=== PATIENT | female | born 1975 | race Caucasian/White ===

== ENCOUNTER 2022-04-02 15:51 | Emergency (ER) | payer MEDICAID, OTHER ==
[~2022-04-02] VITALS: Ht 165.1 cm; Wt 65.8 kg
[2022-04-02 17:00] VITALS: BP_SYST 152
--- NOTE | 2022-04-02 17:25 | NUR ---
Pt presents to the ER bib bls. Pt states homeless and refuses psychosocial rehabilitation counselor assistance. Pt c/o fever at 102.1 temp. Pt skin intact aaox3. bed down bedrails up.
--- NOTE | 2022-04-02 17:30 | NUR ---
Patient to ER bed 8 to gown for evaluation. Side rails up. Report given to Poonam ELIZABETH.
[2022-04-02] MEDS ORDERED: ACETAMINOPHEN 500 MG TABLET PO ONE ×2 (17:45)
[2022-04-02] MEDS ORDERED: NACL 0.9% 1,000 ML IV ONE (17:45)
--- NOTE | 2022-04-02 17:51 | NUR ---
ER at bedside examining patient.
--- NOTE | 2022-04-02 18:45 | NUR ---
Radiology with pt at bs.
[2022-04-02 19:00] LABS: BASOPHILS % (AUTO) 0.8 % (0.0-2.0); EOSINOPHILS % (AUTO) 0.8 % (0.0-4.0); HEMATOCRIT 34.4 % (36-48); HEMOGLOBIN 11.6 g/dL (12.0-16.0); LYMPHOCYTES # (AUTO) 1.2 K/uL (1.0-5.5); LYMPHOCYTES % (AUTO) 25.6 % (20.5-51.5); MEAN CORPUSCULAR HEMOGLOBIN 28 pg (27-31); MEAN CORPUSCULAR HGB CONC 34 % (32-36); MEAN CORPUSCULAR VOLUME 82 fL (79.0-98.0); MONOCYTES # (AUTO) 0.5 K/uL (0.0-1.0); MONOCYTES % (AUTO) 10.7 % (1.7-9.3); NEUTROPHILS # (AUTO) 2.9 K/uL (1.8-7.7); NEUTROPHILS % (AUTO) 62.1 % (40.0-70.0); PLATELET COUNT (AUTO) 168 K/uL (130-430); RED CELL DISTRIBUTION WIDTH 14.6 % (9.0-15.0); WHITE BLOOD COUNT (AUTO) 4.6 K/uL (4.8-10.8)
[2022-04-02 19:06] LABS: BILIRUBIN,URINE NEGATIVE (NEGATIVE); BLOOD, URINE NEGATIVE (NEGATIVE); CLARITY/URINE CLEAR (CLEAR); COLOR,URINE YELLOW (YELLOW); GLUCOSE,URINE NEGATIVE (NEGATIVE); KETONES,URINE NEGATIVE (NEGATIVE); LEUKOCYTE ESTERASE ,URINE NEGATIVE (NEGATIVE); NITRITE, URINE NEGATIVE (NEGATIVE); PROTEIN URINE NEGATIVE (NEGATIVE); UROBILINOGEN,URINE 0.2 (0.2-1.0)
[2022-04-02 19:21] LABS: METHAMPHETAMINES SCREEN,URINE POSITIVE (NEG <=500); URINE AMPHETAMINE POSITIVE (NEG <=500)
[2022-04-02 19:22] LABS: BARBITURATE, URINE NEGATIVE (NEG <=200); BENZODIAZEPINE, URINE NEGATIVE (NEG <=150); CANNABINOID, URINE NEGATIVE (NEG <=50); COCAINE, URINE NEGATIVE (NEG <=150); OPIATE, URINE NEGATIVE (NEG <=100); PHENCYCLIDINE SCREEN,URINE NEGATIVE (NEG <=25); UR TRICYCLIC ANTIDEPRESSANTS NEGATIVE (NEG <=300); URINE METHADONE NEGATIVE (NEG <=200); URINE OXYCODONE SCREEN NEGATIVE (NEG <=100); URINE PROPOXYPHENE SCREEN NEGATIVE (NEG <=300)
[2022-04-02 19:24] LABS: ANION GAP 7 (5-15); CALCIUM 7.8 mg/dL (8.4-11.0); CHLORIDE 100 mmol/L (98-107); CREATININE 0.82 mg/dL (0.55-1.30); GLUCOSE 93 mg/dL (70-99); POTASSIUM 3.4 mmol/L (3.5-5.1); SODIUM SERUM 131 mmol/L (136-145); UREA NITROGEN, BLOOD 9 mg/dL (8-21)
--- NOTE | 2022-04-02 19:34 | NUR ---
ASSUMED CARE OF PT IV ESTABLISHED. FLUIDS STARTED. PT AOX4. COMPLAINING OF BACK PAIN, CHRONIC PER PT. RESP EQUAL UNLABORED. ON ROOM AIR O2SAT >95%. SKIN DIAPHORETIC, WARM. COMPLAINING OF HUNGER. DENIES PMH.
[2022-04-02 19:35] LABS: GFR AFRICAN AMERICAN 96 mL/min (>90)
[2022-04-02 19:36] LABS: ALANINE AMINOTRANSFERASE 14 U/L (12-78); ALBUMIN 2.8 g/dL (3.4-4.8); ASPARTATE AMINOTRANSFERASE 22 U/L (10-37); HCG,QUANTITATIVE 0 mIU/ML (0-6)
[2022-04-02 19:45] LABS: ALCOHOL, BLOOD < 3 mg/dL (<10)
--- NOTE | 2022-04-02 19:52 | NUR ---
STOOD PT UP AND AMBULATED IN ROOM FOR [address] DENISE ORDER. PT O2SAT LAYING DOWN 96%, DURING AMBULATION 98%. COMMUNICATED RESULTS TO DR. DENISE.
[2022-04-02 19:54] LABS: TOTAL BILIRUBIN 0.2 mg/dL (0.0-1.0)
[2022-04-02 20:00] VITALS: BP_SYST 128
[2022-04-02] MEDS ORDERED: NIRM1TAB PO (21:14)
--- NOTE | 2022-04-02 21:58 | NUR ---
Patient given written and verbal discharge instructions and verbalizes understanding. Given copies of tests performed during visit. Patient is awake, alert and oriented. Ambulatory with steady gait. Refuses offer of half-way placement. Given food, appropriate clothing, and list of resources. Given list of available shelters in surrounding areas. nad at time of dc.
== END 2022-04-02 21:50 | disposition home or self-care (01) ==
LOC: SED 15:51
DX: U07.1 COVID-19 (principal); J06.9 Acute upper respiratory infection, unspecified; R50.9 Fever, unspecified; R05.9 Cough, unspecified; I10 Essential (primary) hypertension; F19.10 Other psychoactive substance abuse, uncomplicated; Z79.899 Other long term (current) drug therapy
CPT/HCPCS: 36415; 71045; 80053; 80307; 81003; 82550; 83605; 84484; 84702; 85025; 87426; 93005; 96360; 99285; G0482; J7030